=== PATIENT | male | born 1970 | race Two or more races ===

== ENCOUNTER 2023-05-26 19:27 | Emergency (ER) | payer OTHER ==
[~2023-05-26] VITALS: Ht 167.6 cm; Wt 90.7 kg
[2023-05-26] MEDS ORDERED: COZAAR100 MG PO (20:51)
[2023-05-27 00:59] LABS: HEMOGLOBIN 14.9 g/dL (13-16.00); MEAN CELL VOLUME 87.6 fL (80.0-100.00); MEAN CORPUSCULAR HEMOGLOBIN 29.7 pg (27.00-32.0); MEAN CORPUSCULAR HGB CONC 33.9 g/dl (32.0-36.0); PLATELET COUNT 216 K/uL (150-450); RED BLOOD COUNT 5.02 M/uL (4.00-6.00); RED CELL DISTRIBUTION WIDTH 13.1 % (11.5-14.5)
[2023-05-27 01:16] LABS: ALBUMIN 3.5 gm/dL (3.4-5.0); BILIRUBIN TOTAL 0.52 mg/dL (0.3-1.2); CALCIUM 9.2 mg/dL (8.5-10.1); CREATININE SERUM 1.17 mg/dL (0.70-1.30); GFR 64.96; GLOBULINA 3.9 G/DL (2.4-3.5); POTASSIUM 3.58 mEq/L (3.5-5.1); TOTAL PROTEIN 7.4 gm/dL (6.4-8.2)
[2023-05-27 11:26] LABS: ABG PH 7.389 (7.35-7.45); ABG PO2 100.5 mmHg (80-100); ABG pCO2 38.6 mmHg (35-45); BASE EXCESS -1.8 mmol/l; SaO2 97.6 %
[2023-05-27 11:27] LABS: BICARBONATE 22.8 mmol/l (23-25); allen test SATISFACTORY; o2 21 %; puncture site RADIAL RIGHT
[2023-05-27] MEDS ORDERED: GLUMETZA500 MG PO (18:49)
[2023-05-27] MEDS ORDERED: IPRATROPIU0.2 MG/1 M IH (18:49)
[2023-05-27] MEDS ORDERED: SINGULAIR10 MG PO (18:49)
[2023-05-27] MEDS ORDERED: BUDESONIDE0.5 MG/21 IH (18:49)
== END 2023-05-27 19:14 | disposition home or self-care (01) ==
LOC: ER 19:28
PROVIDERS: Emergency Medicine; General Practice
DX: R05.8 Other specified cough (principal); I10 Essential (primary) hypertension; E11.65 Type 2 diabetes mellitus with hyperglycemia; Z20.822 Contact with and (suspected) exposure to COVID-19

== ENCOUNTER 2024-11-12 12:34 | Inpatient (IN) | payer OTHER ==
[~2024-11-12] VITALS: Ht 167.6 cm; Wt 89.8 kg
[~2024-11-12 12:34] MED LIST: BUDESONIDE0.5 MG/21 IH; COZAAR100 MG PO; GLUMETZA500 MG PO; IPRATROPIU0.2 MG/1 M IH; SINGULAIR10 MG PO
--- NOTE | 2024-11-12 13:14 | NUR ---
SE RECIBE PTE ALERTA Y ORIENTADO X3. PTE REFIERE DOLOR AL ORINAR Y ESCALOFRIOS, TEMP 98.7 ORAL, NO REFIERE NINGUN OTRO SINTOMA. SE MIDEN S/V Y SE UBICA.
[2024-11-12] MEDS ORDERED: TAMSULOSIN HCL 0.4 MG CAP PO ONE ×3 (13:30→20:29)
[2024-11-12] MEDS ORDERED: PHENAZOPYRIDINE HCL 100 MG TABLET PO ONE ×2 (13:30→13:52)
[2024-11-12] MEDS ORDERED: CEFTRIAXONE SODIUM 1,000 MG VIAL IM ONE (13:30)
[2024-11-12] MEDS ORDERED: CEFTRIAXONE SODIUM 1,000 MG VIAL ONE (13:52)
--- NOTE | 2024-11-12 14:03 | NUR ---
SE ORIENTA PACIENTE SOBRE ORDEN MEDICA LA MISMA REFIERE ENTENDER Y ACEPTAL.
[2024-11-12 14:34] LABS: HEMATOCRIT 46.5 % (39.0-48.0); HEMOGLOBIN 15.1 g/dL (13-16.00); MEAN CELL VOLUME 88.9 fL (80.0-100.00); MEAN CORPUSCULAR HEMOGLOBIN 28.9 pg (27.00-32.0); MEAN CORPUSCULAR HGB CONC 32.5 g/dl (32.0-36.0); PLATELET COUNT 179 K/uL (150-450); RED BLOOD COUNT 5.23 M/uL (4.00-6.00); RED CELL DISTRIBUTION WIDTH 13.8 % (11.5-14.5)
[2024-11-12 14:51] LABS: URINE APPEARANCE Clear; URINE BILIRRUBIN Negative (NEGATIVE); URINE BLOOD Negative; URINE COLOR Yellow; URINE GLUCOSE Negative (NEGATIVE); URINE KETONE 15 (NEGATIVE); URINE LEUKOCYTE Small; URINE NITRATE Negative; URINE PROTEIN Trace (NEGATIVE); URINE UROBILINOGEN 0.2 E.U./dl
[2024-11-12 14:55] LABS: URINE BACTERIA 23.2 uL (0.0-1933); URINE RBC 2.3 uL (0.0-20.8); URINE WBC 151.6 uL (0.0-23.2)
[2024-11-12 15:00] LABS: URINE EPITHELIAL CELLS 0.7 uL (0.0-38.8)
[2024-11-12] MEDS ORDERED: 0.9 % SODIUM CHLORIDE 1,000 ML IV ONE (15:30)
--- NOTE | 2024-11-12 15:35 | NUR ---
SE LLAMA PACIENTE RE-EVALUACION MEDICA Y NO CONTESTA.
--- NOTE | 2024-11-12 15:47 | NUR ---
SE LLAMA A PACIENTE PARA RE-EVALUACION MEDICA Y NO CONTESTA.
[2024-11-12 15:50] LABS: ALBUMIN 4.1 gm/dL (3.4-5.0); BILIRUBIN TOTAL 1.33 mg/dL (0.3-1.2); CALCIUM 9.4 mg/dL (8.5-10.1); CREATININE SERUM 1.09 mg/dL (0.70-1.30); GFR 70.23; GLOBULINA 3.2 G/DL (2.4-3.5); POTASSIUM 3.9 mEq/L (3.5-5.1); TOTAL PROTEIN 7.3 gm/dL (6.4-8.2)
[2024-11-12 18:18] LABS: HEMOGLOBIN 14.4 g/dL (13-16.00); MEAN CELL VOLUME 88.9 fL (80.0-100.00); MEAN CORPUSCULAR HEMOGLOBIN 29.1 pg (27.00-32.0); MEAN CORPUSCULAR HGB CONC 32.8 g/dl (32.0-36.0); PLATELET COUNT 168 K/uL (150-450); RED BLOOD COUNT 4.95 M/uL (4.00-6.00); RED CELL DISTRIBUTION WIDTH 13.7 % (11.5-14.5)
[2024-11-12] MEDS ORDERED: METRONIDAZOLE/SODIUM CHLORIDE 100 ML IV SCH (19:22)
[2024-11-12] MEDS ORDERED: CEFTRIAXONE SODIUM 2,000 MG in 0.9 % SODIUM CHLORIDE 100 ML IV SCH (19:22)
[2024-11-12] MEDS ORDERED: TAMSULOSIN HCL 0.4 MG CAP PO SCH (19:54)
[2024-11-12] MEDS ORDERED: ONDANSETRON HCL 4 MG in 0.9 % SODIUM CHLORIDE 50 ML IV PRN (20:00)
[2024-11-12] MEDS ORDERED: INSULIN LISPRO 1,000 UNIT/10 ML UNITS SUBCUTANEO PRN (20:00)
[2024-11-12] MEDS ORDERED: KETOROLAC TROMETHAMINE 15 MG VIAL IU ONE (20:00)
[2024-11-12] MEDS ORDERED: ACETAMINOPHEN 500 MG GEL..CAP PO PRN (20:00)
[2024-11-12] MEDS ORDERED: 0.9 % SODIUM CHLORIDE 1,000 ML IV SCH (20:00)
[2024-11-12] MEDS ORDERED: DEXTROSE 50 % IN WATER 0.5 G/ML DISP.SYRIN IV PRN (20:00)
[2024-11-12] MEDS ORDERED: KETOROLAC TROMETHAMINE 30 MG VIAL ONE (20:29)
[2024-11-12] MEDS ORDERED: CEFTRIAXONE SODIUM 2,000 MG VIAL ONE (20:29)
[2024-11-12 21:03] VITALS: BP 110/80
[2024-11-12 21:55] LABS: AMYLASE 55 U/L (25-115); LIPASE 29 U/L (13-75)
[2024-11-13] MEDS ORDERED: METRONIDAZOLE/SODIUM CHLORIDE 500 MG/100 ML PIGGYBACK IV ONE (00:49)
[2024-11-13] MEDS ORDERED: LOSARTAN POTASSIUM 100 MG TABLET PO SCH (09:00)
[2024-11-13] MEDS ORDERED: FAMOTIDINE/PF 20 MG in 0.9 % SODIUM CHLORIDE 8 ML IV PUSH SCH (09:00)
[2024-11-13] MEDS ORDERED: INSULIN LISPRO 1,000 UNIT/10 ML UNITS SUBCUTANEO ONE (13:12)
[2024-11-14 02:03] VITALS: BP 106/68; O2SAT 97
[2024-11-14 09:18] VITALS: BP 131/81
[2024-11-14 18:01] VITALS: BP 114/55; BP 143/70; O2SAT 97; O2SAT 99
[2024-11-14 21:06] LABS: HEMATOCRIT 41.5 % (39.0-48.0); HEMOGLOBIN 14.2 g/dL (13-16.00); MEAN CELL VOLUME 87.2 fL (80.0-100.00); MEAN CORPUSCULAR HEMOGLOBIN 29.9 pg (27.00-32.0); MEAN CORPUSCULAR HGB CONC 34.3 g/dl (32.0-36.0); PLATELET COUNT 152 K/uL (150-450); RED BLOOD COUNT 4.75 M/uL (4.00-6.00); RED CELL DISTRIBUTION WIDTH 13.8 % (11.5-14.5)
[2024-11-14 22:00] LABS: ALBUMIN 3.4 gm/dL (3.4-5.0); BILIRUBIN TOTAL 0.41 mg/dL (0.3-1.2); CALCIUM 8.9 mg/dL (8.5-10.1); CREATININE SERUM 1.2 mg/dL (0.70-1.30); GFR 62.86; GLOBULINA 3.4 G/DL (2.4-3.5); MAGNESIUM 2.2 mg/dL (1.8-2.4); PHOSPHOROUS 2.3 mg/dL (2.5-4.9); POTASSIUM 3.91 mEq/L (3.5-5.1); PROSTATIC SPECIFIC ANTIGEN 6.56 NG/ML (0.010-4.00); TOTAL PROTEIN 6.8 gm/dL (6.4-8.2)
[2024-11-15 02:30] VITALS: BP 134/73; O2SAT 96
[2024-11-15 07:34] LABS: CHOL HDL RATIO 4.5 (0-5.0); TSH 3.68 uIU/mL (0.358-3.74)
[2024-11-15 07:36] LABS: C-REACTIVE PROTEIN 8.75 MG/DL (0.00-0.29); PROSTATIC SPECIFIC ANTIGEN 5.94 NG/ML (0.010-4.00)
[2024-11-15 09:41] VITALS: BP 153/85; O2SAT 95
[2024-11-15] MEDS ORDERED: LACTOBACILLUS ACIDOPHILUS 1 CAP CAP PO NR (12:30)
[2024-11-15] MEDS ORDERED: CIPROFLOXACIN IN 5 % DEXTROSE 200 ML IV NR (13:00)
[2024-11-15] MEDS ORDERED: LACTOBACILLUS ACIDOPHILUS 1 CAP CAP PO SCH (17:00)
[2024-11-15 17:01] VITALS: BP 153/94; O2SAT 97
[2024-11-15] MEDS ORDERED: CIPROFLOXACIN IN 5 % DEXTROSE 200 ML IV SCH (21:00)
[2024-11-15] MEDS ORDERED: DIPHENHYDRAMINE HCL 50 MG/ML VIAL 1ML ONE (21:57)
[2024-11-15] MEDS ORDERED: DIPHENHYDRAMINE HCL 50 MG/ML VIAL 1ML IV ONE (23:00)
[2024-11-16 03:40] VITALS: BP 121/77; O2SAT 100
[2024-11-16 08:02] VITALS: BP 154/81
[2024-11-16] MEDS ORDERED: CIPRO500 MG PO (14:57)
[2024-11-16] MEDS ORDERED: INTESTINEX680 M1 PO (14:57)
[2024-11-16] MEDS ORDERED: LOSARTAN POTAS100 MG PO (15:02)
[2024-11-16] MEDS ORDERED: VITAMIN D3 PO (15:02)
[2024-11-16] MEDS ORDERED: TRADJENTA5 MG PO (15:02)
[2024-11-16] MEDS ORDERED: TAMS0.4C PO (15:02)
[2024-11-16] MEDS ORDERED: ATORVASTATIN CA10 MG PO (15:02)
[2024-11-16] MEDS ORDERED: METFORMIN HCL1000 M2 PO (15:02)
[2024-11-16] MEDS ORDERED: FAMOtidine 20 MG TABLET PO SCH (21:00)
== END 2024-11-16 16:04 | disposition home or self-care (01) | DRG 689 ==
LOC: ER 12:35 → MEDI 20:45
PROVIDERS: General Practice; Internal Medicine Infectious Disease; ADMIT Internal Medicine; ATTEND Internal Medicine
PROC: BW21ZZZ Computerized Tomography (CT Scan) of Abdomen and Pelvis (ICD-10-PCS; principal; 2024-11-12)
PROC: BW40ZZZ Ultrasonography of Abdomen (ICD-10-PCS; 2024-11-12)
DX: N39.0 Urinary tract infection, site not specified (principal); A41.9 Sepsis, unspecified organism; N41.0 Acute prostatitis; K80.20 Calculus of gallbladder without cholecystitis without obstruction